=== PATIENT | male | born 1970 | race Caucasian/White ===

== ENCOUNTER 2021-12-18 11:08 | Inpatient (IN) | payer MEDICARE, MEDICAID ==
[~2021-12-18] VITALS: Ht 177.8 cm; Wt 90.1 kg
[~2021-12-18 11:08] MED LIST: ACET-2247 PO; CLON-595 PO; FOLI-130 PO; IBUP-2070 PO; MULT-1239 PO; OLAN10TA22 PO; OMEP20 PO; PREG50 PO; PROM25 PO; QUET100T34 PO; SODI45SP6 NASAL; THIAMINE HCL100 MG PO; ZOLP10TA8 PO
[2021-12-18 14:56] LABS: BASOPHILS % (AUTO) 0.6 % (0.0-2.0); EOSINOPHILS % (AUTO) 1.9 % (1.0-6.0); HEMOGLOBIN 12.8 g/dL (13.5-17.5); LYMPHOCYTES # (AUTO) 2.7 K/uL (1.0-4.8); LYMPHOCYTES % (AUTO) 28.7 % (22.0-44.0); MEAN CORPUSCULAR HEMOGLOBIN 30.5 pg (26.0-34.0); MEAN CORPUSCULAR HGB CONC 34.6 G/dL (31.0-37.0); MEAN CORPUSCULAR VOLUME 88 fL (80-100); MONOCYTES # (AUTO) 0.6 K/uL (0.1-1.0); MONOCYTES % (AUTO) 6.4 % (2.0-9.0); NEUTROPHILS # (AUTO) 5.8 K/uL (1.8-7.7); NEUTROPHILS % (AUTO) 62.4 % (40.0-70.0); PLATELET COUNT (AUTO) 343 K/uL (150-450); RED CELL DISTRIBUTION WIDTH 14.6 % (11.5-14.5)
[2021-12-18 15:16] LABS: AMPHET/METH SCREEN,URINE POSITIVE (NEGATIVE); APPEARANCE,URINE CLEAR (CLEAR); BARBITURATE SCREEN, URINE NEGATIVE (NEGATIVE); BENZODIAZEPINES SCREEN,URINE NEGATIVE (NEGATIVE); BILIRUBIN,URINE NEGATIVE (NEGATIVE); CANNABINOID SCREEN,URINE NEGATIVE (NEGATIVE); COCAINE SCREEN,URINE NEGATIVE (NEGATIVE); GLUCOSE, URINE (UA) NEGATIVE (NEGATIVE); KETONES,URINE NEGATIVE (NEGATIVE); LEUKOCYTE ESTERASE ,URINE NEGATIVE (NEGATIVE); METHADONE SCREEN, URINE NEGATIVE (NEGATIVE); NITRATE,URINE NEGATIVE (NEGATIVE); OCCULT BLOOD,URINE TRACE (NEGATIVE); OPIATE SCREEN,URINE NEGATIVE (NEGATIVE); PROTEIN,URINE NEGATIVE (NEGATIVE); UROBILINOGEN,URINE 0.2 mg/dL (<=1.0)
[2021-12-18 15:18] LABS: ANION GAP 11 mmol/L (8-16); CALCIUM, TOTAL 9.1 mg/dL (8.8-10.5); CARBON DIOXIDE 28 mmol/L (22-29); CHLORIDE 101 mmol/L (98-107); GLOMERULAR FILTR. RATE CALC > 60 mL/min (>60); GLUCOSE,RANDOM 101 mg/dL (70-110); POTASSIUM 4.1 mmol/L (3.5-5.1); SODIUM SERUM 140 mmol/L (136-145); UREA NITROGEN, BLOOD 8 mg/dL (7-18)
[2021-12-18 15:19] LABS: PHENCYCLIDINE SCREEN,URINE NEGATIVE (NEGATIVE)
[2021-12-18 15:24] LABS: ALANINE AMINOTRANSFERASE 22 U/L (12-78); ALKALINE PHOSPHATASE 82 U/L (46-116); ASPARTATE AMINOTRANSFERASE 15 U/L (15-37); BILIRUBIN,TOTAL 0.4 mg/dL (0.1-1.0); TOTAL PROTEIN, SERUM 7.7 g/dL (6.4-8.2)
[2021-12-18 15:24] LABS: BACTERIA,URINE None Seen /HPF (None Seen); SQUAMOUS EPITHELIAL CELL,UR None Seen /LPF (None Seen); WBC,URINE 0-2 /HPF (0-5)
[2021-12-18] MEDS: HALOPERIDOL 5 MG TABLET PO PRN (18:38)
[2021-12-18] MEDS: LORazepam 2 MG TABLET PO PRN (18:39)
[2021-12-18] MEDS ORDERED: LORazepam 1 MG TABLET PO ONE (19:15)
[2021-12-18] MEDS: ZOLPIDEM TARTRATE 10 MG TABLET PO PRN (19:34)
[2021-12-19 00:58] LABS: CHOLESTEROL 139 mg/dL (131-200); HDL CHOLESTEROL 46 mg/dL (40-60); LDL CHOL (CALC.) 70 mg/dL (0-130); TRIGLYCERIDES 116 mg/dL (15-150)
[2021-12-19 08:50] LABS: COVID AG,FIA SOURCE NASAL SWAB
[2021-12-19] MEDS: HALOPERIDOL 5 MG TABLET PO PRN ×2 (10:38→14:56)
[2021-12-19] MEDS: LORazepam 2 MG TABLET PO PRN ×2 (10:38→14:56)
[2021-12-19 14:23] VITALS: BP 140/83
[2021-12-19] MEDS ORDERED: DOCUSATE SODIUM 100 MG CAPSULE PO PRN (16:00)
[2021-12-19] MEDS ORDERED: CloNIDine HCL 0.1 MG TABLET PO PRN (16:00)
[2021-12-19] MEDS ORDERED: GuaiFENesin/D-METHORPHAN [SUGAR-FREE] 200-20MG/10 ML SYRUP UDCUP PO PRN (16:00)
[2021-12-19] MEDS ORDERED: MAGNESIUM HYDROXIDE SUSPENSION 30 ML UDCUP PO PRN (16:00)
[2021-12-19] MEDS ORDERED: LOPERAMIDE HCL 2 MG CAPSULE PO PRN (16:00)
[2021-12-19] MEDS ORDERED: PETROLATUM,WHITE 28 GM JELLY TP PRN (16:00)
[2021-12-19] MEDS ORDERED: ALBUTEROL SULFATE HFA 90 MCG/PUFF 8 GM INHALER IH PRN (16:00)
[2021-12-19 16:26] VITALS: BP 105/72
[2021-12-20 03:30] VITALS: BP 115/79
[2021-12-20] MEDS: LORazepam 2 MG TABLET PO PRN ×4 (03:39→17:03)
[2021-12-20] MEDS: HALOPERIDOL 5 MG TABLET PO PRN ×3 (03:39→12:25)
[2021-12-20] MEDS: ONDANSETRON HCL 4 MG TABLET PO PRN (09:07)
[2021-12-20 09:47] VITALS: BP 108/62
[2021-12-20] MEDS ORDERED: OMEPRAZOLE 20 MG CAPSULE PO ONE (13:45)
[2021-12-20] MEDS ORDERED: DULO60CA98 PO (13:47)
[2021-12-20] MEDS ORDERED: PROP10TA73 PO (13:47)
[2021-12-20] MEDS ORDERED: TRAZ-252 PO (13:47)
[2021-12-20] MEDS ORDERED: OLAN20TA35 PO (13:47)
[2021-12-20] MEDS ORDERED: OMEP40CA21 PO (13:47)
[2021-12-20] MEDS: ONDANSETRON HCL 4 MG/2 ML VIAL IM PRN (14:54)
[2021-12-20 16:05] VITALS: BP 121/69
[2021-12-20] MEDS: PROPRANOLOL HCL 10 MG TABLET PO SCH (16:33)
[2021-12-20] MEDS: OLANZapine 10 MG TABLET PO SCH (20:31)
[2021-12-20] MEDS: TraZODone HCL 50 MG TABLET PO SCH (20:31)
[2021-12-20] MEDS: ZOLPIDEM TARTRATE 10 MG TABLET PO PRN (21:18)
[2021-12-21 01:04] VITALS: BP 119/72
[2021-12-21] MEDS: HALOPERIDOL 5 MG TABLET PO PRN ×3 (06:17→15:18)
[2021-12-21] MEDS: LORazepam 2 MG TABLET PO PRN ×3 (06:17→15:18)
[2021-12-21] MEDS: PROPRANOLOL HCL 10 MG TABLET PO SCH ×3 (08:12→16:24)
[2021-12-21 08:13] VITALS: BP 118/74
[2021-12-21] MEDS: NICOTINE 14 MG/24 HOUR PATCH TD PRN (08:29)
[2021-12-21 16:06] VITALS: BP 135/70
[2021-12-21] MEDS: IBUPROFEN 400 MG TABLET PO PRN (18:40)
[2021-12-21] MEDS: OLANZapine 10 MG TABLET PO SCH (20:09)
[2021-12-21] MEDS: TraZODone HCL 50 MG TABLET PO SCH (20:09)
[2021-12-21] MEDS: ZOLPIDEM TARTRATE 10 MG TABLET PO PRN (20:14)
[2021-12-22 05:59] VITALS: BP 122/71
[2021-12-22] MEDS: LORazepam 2 MG TABLET PO PRN ×3 (07:19→16:25)
[2021-12-22] MEDS: HALOPERIDOL 5 MG TABLET PO PRN ×3 (07:19→16:25)
[2021-12-22] MEDS: PROPRANOLOL HCL 10 MG TABLET PO SCH ×3 (07:47→16:25)
[2021-12-22 08:16] VITALS: BP 135/69
[2021-12-22] MEDS: ONDANSETRON HCL 4 MG TABLET PO PRN (09:20)
[2021-12-22] MEDS: SERTRALINE HCL 50 MG TABLET PO SCH (12:13)
[2021-12-22 16:06] VITALS: BP 106/82
[2021-12-22] MEDS: OLANZapine 10 MG TABLET PO SCH (20:44)
[2021-12-22] MEDS: TraZODone HCL 50 MG TABLET PO SCH (20:44)
[2021-12-22] MEDS: ZOLPIDEM TARTRATE 10 MG TABLET PO PRN (20:44)
[2021-12-23 01:00] VITALS: BP 115/78
[2021-12-23] MEDS: PROPRANOLOL HCL 10 MG TABLET PO SCH ×3 (08:15→16:13)
[2021-12-23] MEDS: LORazepam 2 MG TABLET PO PRN ×3 (08:16→17:03)
[2021-12-23] MEDS: SERTRALINE HCL 50 MG TABLET PO SCH (08:16)
[2021-12-23 08:43] VITALS: BP 128/62
[2021-12-23 12:41] VITALS: BP 108/70
[2021-12-23] MEDS: HALOPERIDOL 5 MG TABLET PO PRN ×2 (12:47→17:03)
[2021-12-23] MEDS: ONDANSETRON HCL 4 MG TABLET PO PRN (15:13)
[2021-12-23 16:09] VITALS: BP 125/66
[2021-12-23] MEDS: TraZODone HCL 50 MG TABLET PO SCH (20:09)
[2021-12-23] MEDS: OLANZapine 10 MG TABLET PO SCH (20:09)
[2021-12-23] MEDS: ZOLPIDEM TARTRATE 10 MG TABLET PO PRN (21:00)
[2021-12-24] MEDS: HALOPERIDOL 5 MG TABLET PO PRN ×4 (00:04→17:19)
[2021-12-24] MEDS: LORazepam 2 MG TABLET PO PRN ×4 (00:04→17:19)
[2021-12-24 01:29] VITALS: BP 120/86
[2021-12-24 07:25] LABS: GLUCOMETER DEV NAME(LOC) POC.BV
[2021-12-24] MEDS: SERTRALINE HCL 50 MG TABLET PO SCH (08:08)
[2021-12-24] MEDS: PROPRANOLOL HCL 10 MG TABLET PO SCH ×3 (08:08→17:19)
[2021-12-24] MEDS: ONDANSETRON HCL 4 MG TABLET PO PRN (08:53)
[2021-12-24 09:31] VITALS: BP 141/80
[2021-12-24] MEDS: NICOTINE 14 MG/24 HOUR PATCH TD PRN (09:58)
[2021-12-24 16:59] VITALS: BP 112/67
[2021-12-24] MEDS: OLANZapine 10 MG TABLET PO SCH (20:02)
[2021-12-24] MEDS: TraZODone HCL 50 MG TABLET PO SCH (20:02)
[2021-12-24] MEDS: ONDANSETRON HCL 4 MG/2 ML VIAL IM PRN (20:17)
[2021-12-24] MEDS: ZOLPIDEM TARTRATE 10 MG TABLET PO PRN (21:21)
[2021-12-25 06:44] VITALS: BP 112/60
[2021-12-25] MEDS: PROPRANOLOL HCL 10 MG TABLET PO SCH ×3 (08:00→16:39)
[2021-12-25] MEDS: HALOPERIDOL 5 MG TABLET PO PRN ×2 (08:00→15:50)
[2021-12-25] MEDS: LORazepam 2 MG TABLET PO PRN ×2 (08:00→17:23)
[2021-12-25] MEDS: SERTRALINE HCL 50 MG TABLET PO SCH (08:02)
[2021-12-25 08:25] VITALS: BP 93/60
[2021-12-25] MEDS: ONDANSETRON HCL 4 MG TABLET PO PRN ×2 (11:59→23:40)
[2021-12-25] MEDS: MAG HYDROX/AL HYDROX/SIMETH ES 30 ML SUSPENSION UDCUP PO PRN (15:51)
[2021-12-25 16:14] VITALS: BP 106/62
[2021-12-25] MEDS: OLANZapine 10 MG TABLET PO SCH (20:23)
[2021-12-25] MEDS: TraZODone HCL 50 MG TABLET PO SCH (20:23)
[2021-12-25] MEDS: ZOLPIDEM TARTRATE 10 MG TABLET PO PRN (23:39)
[2021-12-26 00:01] VITALS: BP 114/75
[2021-12-26 05:03] VITALS: BP 128/90
[2021-12-26] MEDS: LORazepam 2 MG TABLET PO PRN ×3 (05:06→13:22)
[2021-12-26] MEDS: HALOPERIDOL 5 MG TABLET PO PRN ×3 (05:07→13:22)
[2021-12-26] MEDS: PROPRANOLOL HCL 10 MG TABLET PO SCH ×3 (08:02→16:15)
[2021-12-26] MEDS: SERTRALINE HCL 50 MG TABLET PO SCH (08:02)
[2021-12-26] MEDS: ONDANSETRON HCL 4 MG TABLET PO PRN (11:12)
[2021-12-26] MEDS: ACETAMINOPHEN 325 MG TABLET PO PRN (11:48)
[2021-12-26 12:05] VITALS: BP 140/80
[2021-12-26] MEDS: MAG HYDROX/AL HYDROX/SIMETH ES 30 ML SUSPENSION UDCUP PO PRN (14:33)
[2021-12-26 16:13] VITALS: BP 114/72
[2021-12-26] MEDS: OMEPRAZOLE 20 MG CAPSULE PO SCH (16:15)
[2021-12-26] MEDS: OLANZapine 10 MG TABLET PO SCH (20:18)
[2021-12-26] MEDS: TraZODone HCL 50 MG TABLET PO SCH (20:18)
[2021-12-26] MEDS: ZOLPIDEM TARTRATE 10 MG TABLET PO PRN (22:17)
[2021-12-27] MEDS: LORazepam 2 MG TABLET PO PRN ×3 (08:03→17:49)
[2021-12-27] MEDS: PROPRANOLOL HCL 10 MG TABLET PO SCH ×3 (08:03→16:35)
[2021-12-27] MEDS: HALOPERIDOL 5 MG TABLET PO PRN ×3 (08:03→16:41)
[2021-12-27] MEDS: SERTRALINE HCL 50 MG TABLET PO SCH (08:04)
[2021-12-27] MEDS: OMEPRAZOLE 20 MG CAPSULE PO SCH (08:04)
[2021-12-27 08:14] VITALS: BP 131/73
[2021-12-27] MEDS: NICOTINE 14 MG/24 HOUR PATCH TD PRN (09:16)
[2021-12-27] MEDS ORDERED: DiphenhydrAMINE HCL 25 MG CAPSULE PO ONE (14:30)
[2021-12-27 15:37] VITALS: BP 110/72
[2021-12-27 16:54] VITALS: BP 110/72
[2021-12-27] MEDS: MAG HYDROX/AL HYDROX/SIMETH ES 30 ML SUSPENSION UDCUP PO PRN (18:29)
[2021-12-27] MEDS: OLANZapine 10 MG TABLET PO SCH (20:29)
[2021-12-27] MEDS: ZOLPIDEM TARTRATE 10 MG TABLET PO PRN (20:29)
[2021-12-27] MEDS: TraZODone HCL 50 MG TABLET PO SCH (20:29)
[2021-12-28] MEDS: OMEPRAZOLE 20 MG CAPSULE PO SCH (08:30)
[2021-12-28] MEDS: SERTRALINE HCL 50 MG TABLET PO SCH (08:30)
[2021-12-28] MEDS: PROPRANOLOL HCL 10 MG TABLET PO SCH ×3 (08:30→16:16)
[2021-12-28] MEDS: LORazepam 2 MG TABLET PO PRN ×2 (08:32→16:08)
[2021-12-28 08:34] VITALS: BP 122/89
[2021-12-28] MEDS: ACETAMINOPHEN 325 MG TABLET PO PRN (11:32)
[2021-12-28] MEDS: HALOPERIDOL 5 MG TABLET PO PRN (14:28)
[2021-12-28 16:09] VITALS: BP 120/70
[2021-12-28] MEDS ORDERED: TUBERCULIN, PURIFIED PROTEIN DERIVATIVE 5 TU/0.1 ML SYRINGE ID ONE (18:00)
[2021-12-28] MEDS: TraZODone HCL 50 MG TABLET PO SCH (20:41)
[2021-12-28] MEDS: OLANZapine 10 MG TABLET PO SCH (20:41)
[2021-12-28] MEDS: ZOLPIDEM TARTRATE 10 MG TABLET PO PRN (20:46)
[2021-12-29] MEDS: LORazepam 2 MG TABLET PO PRN (01:42)
[2021-12-29] MEDS: HALOPERIDOL 5 MG TABLET PO PRN ×4 (01:42→21:56)
[2021-12-29 04:07] VITALS: BP 115/80
[2021-12-29 08:11] VITALS: BP 128/78
[2021-12-29] MEDS: PROPRANOLOL HCL 10 MG TABLET PO SCH ×3 (08:17→16:03)
[2021-12-29] MEDS: OMEPRAZOLE 20 MG CAPSULE PO SCH (08:18)
[2021-12-29] MEDS: SERTRALINE HCL 50 MG TABLET PO SCH (08:18)
[2021-12-29] MEDS: NICOTINE 14 MG/24 HOUR PATCH TD PRN (11:10)
[2021-12-29] MEDS: HydrOXYzine PAMOATE 25 MG CAPSULE PO PRN ×3 (12:00→23:54)
[2021-12-29 16:07] VITALS: BP 120/18
[2021-12-29] MEDS: ACETAMINOPHEN 325 MG TABLET PO PRN (19:16)
[2021-12-29] MEDS: TraZODone HCL 50 MG TABLET PO SCH (20:31)
[2021-12-29] MEDS: OLANZapine 10 MG TABLET PO SCH (20:32)
[2021-12-29] MEDS: ZOLPIDEM TARTRATE 10 MG TABLET PO PRN (21:56)
[2021-12-30 02:21] VITALS: BP 147/82
[2021-12-30] MEDS: HALOPERIDOL 5 MG TABLET PO PRN ×3 (03:01→16:46)
[2021-12-30] MEDS: SERTRALINE HCL 50 MG TABLET PO SCH (08:27)
[2021-12-30] MEDS: OMEPRAZOLE 20 MG CAPSULE PO SCH (08:27)
[2021-12-30] MEDS: PROPRANOLOL HCL 10 MG TABLET PO SCH ×3 (08:27→16:46)
[2021-12-30] MEDS: HydrOXYzine PAMOATE 25 MG CAPSULE PO PRN ×3 (08:32→18:47)
[2021-12-30 08:44] VITALS: BP 119/76
[2021-12-30] MEDS: MAG HYDROX/AL HYDROX/SIMETH ES 30 ML SUSPENSION UDCUP PO PRN ×2 (13:19→19:22)
[2021-12-30] MEDS: ACETAMINOPHEN 325 MG TABLET PO PRN (13:50)
[2021-12-30] MEDS: IBUPROFEN 400 MG TABLET PO PRN (16:09)
[2021-12-30 16:10] VITALS: BP 114/71
[2021-12-30] MEDS: OLANZapine 10 MG TABLET PO SCH (20:42)
[2021-12-30] MEDS: TraZODone HCL 50 MG TABLET PO SCH (20:42)
[2021-12-30] MEDS: ZOLPIDEM TARTRATE 10 MG TABLET PO PRN (21:05)
[2021-12-31 01:32] LABS: GLUCOMETER DEV NAME(LOC) POC.BV
[2021-12-31 05:49] VITALS: BP 140/78
[2021-12-31 08:09] VITALS: BP 110/63
[2021-12-31] MEDS: SERTRALINE HCL 50 MG TABLET PO SCH (08:59)
[2021-12-31] MEDS: PROPRANOLOL HCL 10 MG TABLET PO SCH ×3 (08:59→16:29)
[2021-12-31] MEDS: OMEPRAZOLE 20 MG CAPSULE PO SCH (08:59)
[2021-12-31] MEDS: NICOTINE 14 MG/24 HOUR PATCH TD PRN (10:04)
[2021-12-31] MEDS: HydrOXYzine PAMOATE 25 MG CAPSULE PO PRN ×2 (10:42→16:14)
[2021-12-31] MEDS: ACETAMINOPHEN 325 MG TABLET PO PRN ×2 (10:42→19:01)
[2021-12-31] MEDS: IBUPROFEN 400 MG TABLET PO PRN (13:07)
[2021-12-31] MEDS: HALOPERIDOL 5 MG TABLET PO PRN ×2 (13:45→19:36)
[2021-12-31 16:00] VITALS: BP 118/68
[2021-12-31] MEDS: MAG HYDROX/AL HYDROX/SIMETH ES 30 ML SUSPENSION UDCUP PO PRN (17:59)
[2021-12-31] MEDS: TraZODone HCL 50 MG TABLET PO SCH (20:11)
[2021-12-31] MEDS: OLANZapine 10 MG TABLET PO SCH (20:12)
[2021-12-31] MEDS: ZOLPIDEM TARTRATE 10 MG TABLET PO PRN (21:17)
[2022-01-01 05:42] VITALS: BP 138/72
[2022-01-01] MEDS: HydrOXYzine PAMOATE 25 MG CAPSULE PO PRN ×2 (07:30→17:07)
[2022-01-01 08:10] VITALS: BP 120/92
[2022-01-01] MEDS: PROPRANOLOL HCL 10 MG TABLET PO SCH ×3 (08:43→17:07)
[2022-01-01] MEDS: SERTRALINE HCL 50 MG TABLET PO SCH (08:43)
[2022-01-01] MEDS: OMEPRAZOLE 20 MG CAPSULE PO SCH (08:44)
[2022-01-01] MEDS: OLANZapine 5 MG TABLET PO SCH ×2 (10:27→12:26)
[2022-01-01] MEDS: ACETAMINOPHEN 325 MG TABLET PO PRN ×2 (10:28→17:07)
[2022-01-01] MEDS: IBUPROFEN 400 MG TABLET PO PRN (12:28)
[2022-01-01 16:09] VITALS: BP 117/71
[2022-01-01] MEDS: NICOTINE 14 MG/24 HOUR PATCH TD PRN (17:10)
[2022-01-01] MEDS: MAG HYDROX/AL HYDROX/SIMETH ES 30 ML SUSPENSION UDCUP PO PRN (19:12)
[2022-01-01] MEDS: TraZODone HCL 50 MG TABLET PO SCH (21:08)
[2022-01-01] MEDS: OLANZapine 10 MG TABLET PO SCH (21:08)
[2022-01-01] MEDS: ZOLPIDEM TARTRATE 10 MG TABLET PO PRN (21:09)
[2022-01-02 07:05] VITALS: BP 132/68
[2022-01-02 08:30] VITALS: BP 104/65
[2022-01-02] MEDS: SERTRALINE HCL 50 MG TABLET PO SCH (08:31)
[2022-01-02] MEDS: OLANZapine 5 MG TABLET PO SCH ×2 (08:31→12:15)
[2022-01-02] MEDS: PROPRANOLOL HCL 10 MG TABLET PO SCH ×3 (08:31→16:14)
[2022-01-02] MEDS: OMEPRAZOLE 20 MG CAPSULE PO SCH (08:32)
[2022-01-02] MEDS: HydrOXYzine PAMOATE 25 MG CAPSULE PO PRN ×3 (09:49→19:36)
[2022-01-02] MEDS: ACETAMINOPHEN 325 MG TABLET PO PRN (10:50)
[2022-01-02 12:10] VITALS: BP 100/65
[2022-01-02 16:09] VITALS: BP 110/63
[2022-01-02] MEDS: IBUPROFEN 400 MG TABLET PO PRN (16:14)
[2022-01-02 16:58] VITALS: BP 109/64
[2022-01-02] MEDS: TraZODone HCL 50 MG TABLET PO SCH (20:14)
[2022-01-02] MEDS: OLANZapine 10 MG TABLET PO SCH (20:14)
[2022-01-02] MEDS: ZOLPIDEM TARTRATE 10 MG TABLET PO PRN (20:18)
[2022-01-03 00:12] VITALS: BP 106/67
[2022-01-03 08:27] VITALS: BP 144/72
[2022-01-03] MEDS: PROPRANOLOL HCL 10 MG TABLET PO SCH ×3 (08:36→16:04)
[2022-01-03] MEDS: OLANZapine 5 MG TABLET PO SCH ×2 (08:37→13:11)
[2022-01-03] MEDS: OMEPRAZOLE 20 MG CAPSULE PO SCH (08:37)
[2022-01-03] MEDS: ACETAMINOPHEN 325 MG TABLET PO PRN ×2 (08:37→16:04)
[2022-01-03] MEDS: HydrOXYzine PAMOATE 25 MG CAPSULE PO PRN ×2 (08:38→16:04)
[2022-01-03] MEDS: SERTRALINE HCL 50 MG TABLET PO SCH (08:58)
[2022-01-03] MEDS: IBUPROFEN 400 MG TABLET PO PRN (13:31)
[2022-01-03] MEDS: NICOTINE 14 MG/24 HOUR PATCH TD PRN (13:48)
[2022-01-03] MEDS: MAG HYDROX/AL HYDROX/SIMETH ES 30 ML SUSPENSION UDCUP PO PRN (14:29)
[2022-01-03 16:04] VITALS: BP 127/68
[2022-01-03] MEDS: TraZODone HCL 50 MG TABLET PO SCH (20:22)
[2022-01-03] MEDS: OLANZapine 10 MG TABLET PO SCH (20:25)
[2022-01-03] MEDS: ZOLPIDEM TARTRATE 10 MG TABLET PO PRN (21:18)
[2022-01-04 00:32] VITALS: BP 121/80
[2022-01-04] MEDS: OLANZapine 5 MG TABLET PO SCH ×2 (07:25→12:01)
[2022-01-04] MEDS: OMEPRAZOLE 20 MG CAPSULE PO SCH (07:25)
[2022-01-04] MEDS: PROPRANOLOL HCL 10 MG TABLET PO SCH (07:25)
[2022-01-04] MEDS: SERTRALINE HCL 50 MG TABLET PO SCH (07:25)
[2022-01-04] MEDS: HydrOXYzine PAMOATE 25 MG CAPSULE PO PRN ×3 (07:27→18:04)
[2022-01-04 08:45] VITALS: BP 130/80
[2022-01-04] MEDS: PROPRANOLOL HCL 20 MG TABLET PO SCH ×2 (13:11→16:09)
[2022-01-04 16:14] VITALS: BP 117/73
[2022-01-04] MEDS: ACETAMINOPHEN 325 MG TABLET PO PRN (18:04)
[2022-01-04] MEDS: ZOLPIDEM TARTRATE 10 MG TABLET PO PRN (20:01)
[2022-01-04] MEDS: TraZODone HCL 50 MG TABLET PO SCH (20:02)
[2022-01-04] MEDS: OLANZapine 10 MG TABLET PO SCH (20:02)
[2022-01-05 00:14] VITALS: BP 104/62
[2022-01-05] MEDS: NICOTINE 14 MG/24 HOUR PATCH TD PRN (07:55)
[2022-01-05] MEDS: HydrOXYzine PAMOATE 25 MG CAPSULE PO PRN ×3 (07:55→16:37)
[2022-01-05] MEDS: SERTRALINE HCL 50 MG TABLET PO SCH (07:55)
[2022-01-05] MEDS: PROPRANOLOL HCL 20 MG TABLET PO SCH ×3 (07:55→16:37)
[2022-01-05] MEDS: OMEPRAZOLE 20 MG CAPSULE PO SCH (07:56)
[2022-01-05] MEDS: OLANZapine 5 MG TABLET PO SCH ×2 (07:56→11:51)
[2022-01-05 09:10] VITALS: BP 140/80
[2022-01-05 16:06] VITALS: BP 124/77
[2022-01-05] MEDS: OLANZapine 10 MG TABLET PO SCH (20:09)
[2022-01-05] MEDS: ZOLPIDEM TARTRATE 10 MG TABLET PO PRN (20:09)
[2022-01-05] MEDS: TraZODone HCL 50 MG TABLET PO SCH (20:09)
[2022-01-06 06:45] VITALS: BP 132/73
[2022-01-06 08:01] LABS: GLUCOMETER DEV NAME(LOC) POC.BV
[2022-01-06 08:13] VITALS: BP 120/63
[2022-01-06] MEDS: SERTRALINE HCL 50 MG TABLET PO SCH (10:49)
[2022-01-06] MEDS: OLANZapine 5 MG TABLET PO SCH ×2 (10:49→12:07)
[2022-01-06] MEDS: OMEPRAZOLE 20 MG CAPSULE PO SCH (10:49)
[2022-01-06] MEDS: PROPRANOLOL HCL 20 MG TABLET PO SCH ×3 (10:49→16:47)
[2022-01-06] MEDS: ACETAMINOPHEN 325 MG TABLET PO PRN (12:08)
[2022-01-06] MEDS: HydrOXYzine PAMOATE 25 MG CAPSULE PO PRN ×2 (12:08→16:47)
[2022-01-06] MEDS: NICOTINE 14 MG/24 HOUR PATCH TD PRN (12:09)
[2022-01-06 16:16] VITALS: BP 143/76
[2022-01-06] MEDS: HALOPERIDOL 5 MG TABLET PO PRN (19:24)
[2022-01-06] MEDS: OLANZapine 10 MG TABLET PO SCH (20:12)
[2022-01-06] MEDS: TraZODone HCL 50 MG TABLET PO SCH (20:12)
[2022-01-06] MEDS: ZOLPIDEM TARTRATE 10 MG TABLET PO PRN (21:05)
[2022-01-07 06:21] VITALS: BP 130/62
[2022-01-07 08:31] VITALS: BP 126/86
[2022-01-07] MEDS: SERTRALINE HCL 50 MG TABLET PO SCH (08:35)
[2022-01-07] MEDS: PROPRANOLOL HCL 20 MG TABLET PO SCH ×3 (08:35→16:23)
[2022-01-07] MEDS: OLANZapine 5 MG TABLET PO SCH ×2 (08:35→12:12)
[2022-01-07] MEDS: OMEPRAZOLE 20 MG CAPSULE PO SCH (08:35)
[2022-01-07] MEDS: HydrOXYzine PAMOATE 25 MG CAPSULE PO PRN ×2 (09:48→16:04)
[2022-01-07] MEDS: HALOPERIDOL 5 MG TABLET PO PRN (11:09)
[2022-01-07 12:44] VITALS: BP 112/70
[2022-01-07] MEDS: NICOTINE 14 MG/24 HOUR PATCH TD PRN (14:03)
[2022-01-07 16:08] VITALS: BP 122/73
[2022-01-07] MEDS: ACETAMINOPHEN 325 MG TABLET PO PRN (18:07)
[2022-01-07] MEDS: TraZODone HCL 50 MG TABLET PO SCH (20:30)
[2022-01-07] MEDS: OLANZapine 10 MG TABLET PO SCH (20:30)
[2022-01-07] MEDS: ZOLPIDEM TARTRATE 10 MG TABLET PO PRN (20:46)
[2022-01-08 05:44] VITALS: BP 126/70
[2022-01-08] MEDS: PROPRANOLOL HCL 20 MG TABLET PO SCH ×3 (08:12→17:08)
[2022-01-08] MEDS: OMEPRAZOLE 20 MG CAPSULE PO SCH (08:12)
[2022-01-08] MEDS: OLANZapine 5 MG TABLET PO SCH ×2 (08:12→12:01)
[2022-01-08] MEDS: SERTRALINE HCL 50 MG TABLET PO SCH (08:12)
[2022-01-08] MEDS: HydrOXYzine PAMOATE 25 MG CAPSULE PO PRN (12:50)
[2022-01-08 13:56] VITALS: BP 128/80
[2022-01-08] MEDS: NICOTINE 14 MG/24 HOUR PATCH TD PRN (14:41)
[2022-01-08 16:03] VITALS: BP 108/78
[2022-01-08] MEDS: TraZODone HCL 50 MG TABLET PO SCH (20:05)
[2022-01-08] MEDS: OLANZapine 10 MG TABLET PO SCH (20:06)
[2022-01-08] MEDS: ZOLPIDEM TARTRATE 10 MG TABLET PO PRN (20:58)
[2022-01-09 06:14] VITALS: BP 118/63
[2022-01-09] MEDS: SERTRALINE HCL 50 MG TABLET PO SCH (09:19)
[2022-01-09] MEDS: OMEPRAZOLE 20 MG CAPSULE PO SCH (09:20)
[2022-01-09] MEDS: PROPRANOLOL HCL 20 MG TABLET PO SCH ×3 (09:20→17:56)
[2022-01-09] MEDS: OLANZapine 5 MG TABLET PO SCH ×2 (09:20→12:43)
[2022-01-09 10:11] VITALS: BP 120/74
[2022-01-09] MEDS: HydrOXYzine PAMOATE 25 MG CAPSULE PO PRN ×3 (12:43→23:58)
[2022-01-09] MEDS: NICOTINE 14 MG/24 HOUR PATCH TD PRN (14:43)
[2022-01-09 16:10] VITALS: BP 108/71
[2022-01-09] MEDS: TraZODone HCL 50 MG TABLET PO SCH (20:42)
[2022-01-09] MEDS: ZOLPIDEM TARTRATE 10 MG TABLET PO PRN (20:43)
[2022-01-09] MEDS: OLANZapine 10 MG TABLET PO SCH (20:43)
[2022-01-10 00:13] VITALS: BP 118/78
[2022-01-10] MEDS ORDERED: OLAN5TAB52 PO ×3 (08:06→11:11)
[2022-01-10] MEDS ORDERED: PROP20TA18 PO (08:07)
[2022-01-10] MEDS ORDERED: SERT-158 PO (08:08)
[2022-01-10 08:12] VITALS: BP 109/76
[2022-01-10] MEDS: OMEPRAZOLE 20 MG CAPSULE PO SCH (08:16)
[2022-01-10] MEDS: PROPRANOLOL HCL 20 MG TABLET PO SCH (08:16)
[2022-01-10] MEDS: OLANZapine 5 MG TABLET PO SCH (08:16)
[2022-01-10] MEDS: SERTRALINE HCL 50 MG TABLET PO SCH (08:16)
[2022-01-10] MEDS: MAG HYDROX/AL HYDROX/SIMETH ES 30 ML SUSPENSION UDCUP PO PRN (08:43)
[2022-01-10] MEDS ORDERED: PROP20TA96 PO (11:11)
[2022-01-10] MEDS ORDERED: TRAZ-184 PO (11:11)
[2022-01-10] MEDS ORDERED: OLAN10TA74 PO (11:11)
[2022-01-10] MEDS ORDERED: SERT-439 PO (11:11)
== END 2022-01-10 13:54 | disposition home or self-care (01) | DRG 885 ==
LOC: EMS 11:17 → B2X 12-19 06:00
PROVIDERS: ADMIT Psychiatry & Neurology Psychiatry; ATTEND Psychiatry & Neurology Psychiatry
DX: F25.1 Schizoaffective disorder, depressive type (principal); T40.412A Poisoning by fentanyl or fentanyl analogs, intentional self-harm, initial encounter; B19.20 Unspecified viral hepatitis C without hepatic coma; F15.20 Other stimulant dependence, uncomplicated; K21.9 Gastro-esophageal reflux disease without esophagitis; G89.4 Chronic pain syndrome; E78.5 Hyperlipidemia, unspecified; F17.200 Nicotine dependence, unspecified, uncomplicated; M54.9 Dorsalgia, unspecified; E78.00 Pure hypercholesterolemia, unspecified; F31.9 Bipolar disorder, unspecified; F41.9 Anxiety disorder, unspecified; Z20.822 Contact with and (suspected) exposure to COVID-19; J44.9 Chronic obstructive pulmonary disease, unspecified; Y92.89 Other specified places as the place of occurrence of the external cause; Z79.899 Other long term (current) drug therapy; Z85.528 Personal history of other malignant neoplasm of kidney; Z91.410 Personal history of adult physical and sexual abuse; Z91.51 Personal history of suicidal behavior; Z59.00 Homelessness unspecified
CPT/HCPCS: 80053; 80061; 81001; 85025; 87081; 99285; G0480; J2405; Q0162